=== PATIENT | male | born 1965 | race Caucasian/White ===

== ENCOUNTER 2024-05-27 06:22 | Day surgery (SDC) | payer OTHER, SELFPAY ==
[2024-05-06 13:45] VITALS: BMI 33.2
--- NOTE | 2024-05-07 15:28 | PTCARENOTE ---
Abnormal EKG reviewed by Dr. Kerns, no further action requested.
[2024-05-27] VITALS (9 sets, daily range): BP systolic 132–171; BP diastolic 81–91; BMI 33.2
[2024-05-27] MEDS: NORMOSOL-R/PLASMALYTE-A 1000 IV (11:15)
--- NOTE | 2024-05-27 11:19 | W.SUR.PREOP ---
Pre-Operative Surgical Note
-
I have examined this patient prior to the performance of the scheduled procedure.
The patient's condition is unchanged from the time of the current History and
Physical and the patient is able to undergo the scheduled procedure.
--- NOTE | 2024-05-27 11:19 | HP.FOC2 ---
Focused History & Physical
Chief Complaint
HPI:
Chief Complaint: Umbilical hernia
HPI / Indication for Planned Procedure: Symptomatic umbilical hernia. Robotic umbilical hernia repair with mesh
Relevant Past Medical History: Other (Aortic valve stenosis)
Relevant Social History: Negative
Relevant Family History: Negative
Relevant Past Surgical History: Positive for (Aortic valve repair)
Review of Systems
Review of Pertinent Systems: All Systems Negative
Medication
See Medication form for detailed medications: Yes
Medication List (including Herbals & OTC):
aspirin 325 mg tablet 325 mg PO DAILY 05/27/24
Medications Reviewed: Yes
Allergies and Reactions
Patient has Allergies: No
Noted Allergies and Reactions:
Allergy/AdvReac Type Severity Reaction Status Date / Time
No Known Allergies Allergy Verified 05/27/24 10:54
Pertinent Physical Exam
All Other Systems: Negative
Head/Neck: Normal
Diagnosis / Assessment
This is a 58-year-old male with a mildly symptomatic umbilical hernia.
Plan / Procedure
Robotic umbilical hernia repair with mesh
Anesthesia/Sedation to be done by Anesthesia Provider: Yes
[2024-05-27] MEDS: TYLENOL 1000 MG PO (11:23)
--- NOTE | 2024-05-27 13:44 | W.IMMPOSTOP ---
Surgical Immed Post Op Note
-
Primary Surgeon: Timothy Dial MD
Assisting Surgeon: None
Pre-op Diagnosis: Umbilical hernia
Post-op Diagnosis: Same
Procedure Performed: Robotic umbilical hernia repair with mesh (JI approach)
Anesthesia Type: General
Specimen / Cultures: None
Estimated Blood Loss: 3 cc
Complications: None
Operative Findings: 2 umbilical defects in close proximity, total dimensions 3 cm long by 1 cm wide. Closed with a 0 V-Loc 180 in the longitudinal direction. 11 x 11 cm mesh in the preperitoneal space.
--- NOTE | 2024-05-27 13:46 | OR.RPT ---
Operative Report
Operative Report
Patient Name: Usman Reyes
: 1965
Date of Operation: 05/27/2024
Preoperative Diagnosis: Umbilical hernia
Postoperative Diagnosis: Same
Procedure(s):
Robotic umbilical hernia repair with mesh (JI approach)
Surgeon(s):
Dr. Dial
Pathology Supervisor(s):
PADMAJA Conner
Anesthesia: General
Estimated Blood Loss: 3 cc
Urine Output: None
Drains/Lines/Implants:
11 x 11 cm round Bard soft mesh
Specimens:
None
HPI/Surgical Indications:
This is a 58-year-old male who was seen in my office for a symptomatic umbilical bulge and diagnosed with a reducible umbilical hernia. Risks/Benefits/Alternatives were discussed at length, and the patient agreed to proceed with surgery.
Operative Findings: 2 umbilical defects in close proximity, total dimensions 3 cm long by 1 cm wide. Closed with a 0 V-Loc 180 in the longitudinal direction. 11 x 11 cm mesh in the preperitoneal space.
Procedure Description:
The patient was brought to the Operating Room and placed in the supine position with the arms tucked. IV antibiotics were infused and Venodyne stockings placed. Following uneventful induction of general endotracheal anesthesia, an orogastric tube
were placed. The abdomen was prepped and draped in the usual sterile fashion. The abdomen was entered using a Veress technique which required 1 pass, pneumoperitoneum to 15 mmHg was obtained without difficulty. An 8mm trochar was passed through
the abdominal wall roughly 20 cm laterally from the defect in the left upper quadrant, we then confirmed that no inadvertent injury was made while passing the trocar or Veress needle. We then placed two additional 8 mm ports in the left lower
quadrant. Bilateral tap blocks were performed. The robot was docked. We then introduced our prograsper through the inferior/left hand port and a monopolar scissors through the superior port. We then turned our attention to the hernia which had
no intra-abdominal contents. We then began taking a flap down roughly 6 cm away from the defect and roughly 12 cm in length taking care to stay in the pretransversalis plane. The preperitoneal fat was taken down off of the posterior rectus sheath
both superior and inferior to the hernia defect such that we were able to get our 'volcano sign'. We then worked on reducing the defect which contained preperitoneal fat and continued our dissection out laterally for an additional 6cm. Once our
flap was created we introduced a ruler and a 0 V-Loc 180. There were 2 hernia defects in close proximity to each measured roughly 1 x 1 cm and was roughly 1 cm apart for a total dimensions of 3 cm long by 1 cm wide. The pocket measured 12 x 12 cm.
I had my internet marketing assistant cut a 11 x 11 cm piece of Bard soft mesh marked with 0 Vicryl suture at the center, as I closed the umbilical defect. The mesh was then sutured to the posterior rectus sheath in 4 quadrants with 2-0 vircyls to ensure good
apposition. A 2-0 Monocryl was introduced which was used to close our flap. A small rent was closed with the remnant of 2-0 Vicryl. All sutures were removed. The robot was undocked. The ports were removed under direct visualization and
pneumoperitoneum was evacuated. The port sites were closed with 4-0 Monocryl followed by Dermabond. Counts were correct and overall, the patient tolerated the procedure well and was taken to the Recovery Room postoperatively in stable condition.
I was the attending physician and performed the procedure with assistance from the PA above. The assistance of PADMAJA Conner was required due to the complexity of the procedure. During the procedure Chika assisted with retraction, exchanging
instruments, needles as well as passing in the mesh and closure of the wound. I was present for all portions of the case except for skin closure.
Timothy Dial MD
== END 2024-05-27 15:00 | disposition home or self-care (01) ==
LOC: SDS 06:22
PROVIDERS: ATTENDING PHYSICIAN Surgery; FAMILY PHYSICIAN Family Medicine; OTHER PHYSICIAN Internal Medicine Cardiovascular Disease
DX: K42.9 Umbilical hernia without obstruction or gangrene (principal)
CPT/HCPCS: 49593; 36415; 93005; C1781